=== PATIENT | female | born 1955 | race Caucasian/White ===

== ENCOUNTER 2017-12-02 21:38 | Emergency (ER) | payer MEDICARE ==
[2017-12-02 22:11] VITALS: RESP 18; TEMP 98.3
[2017-12-02 22:46] LABS: BASO # 0.01 K/mm3 (0.0-2.0); BASO % 0.1 % (0.0-3.0); EOS # 0.2 (0.0-0.7); EOS % 2.1 % (1.5-5.0); GRAN # 4.27 (1.4-6.5); GRAN % 55.4 % (50.0-68.0); HEMOGLOBIN 12.4 g/dL (12.0-16.0); LYMPH # 2.6 (1.2-3.4); LYMPH % 33.4 % (22.0-35.0); MEAN CELL VOLUME 82.5 fl (80.0-105.0); MEAN CORPUSCULAR HEMOGLOBIN 26.2 pg (25.0-35.0); MEAN CORPUSCULAR HGB CONC 31.7 g/dl (31.0-37.0); MEAN PLATELET VOLUME 13.5 fl (7.0-11.0); MONO # 0.7 (0.1-0.6); RBC 4.74 10^6/uL (3.5-6.1); RED CELL DISTRIBUTION WIDTH 15.5 % (11.5-14.5); WHITE BLOOD COUNT 7.7 10^3/ul (4.5-11.0)
[2017-12-02 22:54] LABS: ALB/GLOB RATIO 1.3 (1.1-1.8); ALBUMIN 4.3 g/dL (3.0-4.8); ALT/SGPT 45 U/L (7-56); AST/SGOT 44 U/L (14-36); BLOOD UREA NITROGEN 10 mg/dL (7-21); CALCIUM 9.9 mg/dL (8.4-10.5); GFR AFRICAN-AMERICAN > 60; GFR NON-AFRICAN AMERICAN > 60
[2017-12-02 22:56] LABS: INR 2.17 (0.93-1.08); PROTHROMBIN TIME 25.1 SECONDS (9.4-12.5)
--- NOTE | 2017-12-02 23:01 | ED PDOC ---
Arrival/HPI - General Chief Complaint: Trauma Time Seen by Provider: 12/02/17 22:00 Historian: Patient - History of Present Illness Narrative History of Present Illness (Text): 12/02/17 22:20 Kerrie Franco is a 62 year old female, whose past medical history includes atrial fibrillation, who presents to the emergency department complaining of dizziness. Patient states she felt increasingly dizzy while walking at home today and fell to the floor. Patient does not recall the incident and is unsure if she hit her head. Patient also reports right shoulder pain. Patient reports she regularly takes Coumadin. Patient denies any fever, chills, chest pain, shortness of breath, abdominal pain, nausea, vomiting, back pain, neck pain, dizziness, or any other complaints. Symptom Onset: Gradual Symptom Course: Unchanged Activities at Onset: Light Context: Home Past Medical History - Provider Review Nursing Documentation Reviewed: Yes - Cardiac Hx Atrial Fibrillation: Yes - Psychiatric Hx Substance Use: No Family/Social History - Physician Review Nursing Documentation Reviewed: Yes Family/Social History: Unknown Family HX Smoking Status: Current Some Days Smoker Hx Alcohol Use: No Hx Substance Use: No Allergies/Home Meds Allergies/Adverse Reactions: Allergies Penicillins Adverse Reaction (Verified 12/02/17 22:13) RASH Review of Systems - Physician Review All systems were reviewed & negative as marked: Yes - Review of Systems Constitutional: Normal. absent: Fevers Eyes: Normal ENT: Normal Respiratory: Normal. absent: SOB, Cough Cardiovascular: Other (+near-syncope). absent: Chest Pain Gastrointestinal: Normal. absent: Abdominal Pain, Diarrhea, Nausea, Vomiting Genitourinary Female: Normal. absent: Dysuria, Frequency, Hematuria, Urine Output Changes Musculoskeletal: Arthralgias (+right shoulder pain) Skin: Normal. absent: Rash Neurological: Dizziness. absent: Headache Endocrine: Normal Hemo/Lymphatic: Normal Psychiatric: Normal Physical Exam Vital Signs Reviewed: Yes Vital Signs Temp Pulse Resp BP Pulse Ox 12/03/17 00:47 59 L 18 120/59 L 95 12/02/17 21:55 98.3 F 77 18 158/90 H 99 Temperature: Afebrile Blood Pressure: Normal Pulse: Regular Respiratory Rate: Normal Appearance: Positive for: Well-Appearing, Non-Toxic, Comfortable Pain Distress: None Mental Status: Positive for: Alert and Oriented X 3 - Systems Exam Head: Present: Atraumatic, Normocephalic Pupils: Present: PERRL Extroacular Muscles: Present: EOMI Conjunctiva: Present: Normal Mouth: Present: Moist Mucous Membranes Neck: Present: Normal Range of Motion Respiratory/Chest: Present: Clear to Auscultation, Good Air Exchange. No: Respiratory Distress, Accessory Muscle Use Cardiovascular: Present: Regular Rate and Rhythm, Normal S1, S2. No: Murmurs Abdomen: Present: Normal Bowel Sounds. No: Tenderness, Distention, Peritoneal Signs Back: Present: Normal Inspection Upper Extremity: Present: Normal Inspection. No: Cyanosis, Edema Lower Extremity: Present: Normal Inspection. No: Edema Neurological: Present: GCS=15, CN II-XII Intact, Speech Normal Skin: Present: Warm, Dry, Normal Color. No: Rashes Psychiatric: Present: Alert, Oriented x 3, Normal Insight, Normal Concentration Medical Decision Making ED Course and Treatment: 12/02/17 22:20 Impression: 62 year old female presents s/p fall with right shoulder pain and dizziness. Plan: -- CT Head w/o contrast -- EKG -- CXR -- Labs, troponin -- Urinalysis -- Reassess and disposition Prior Visits: Notes and results from previous visits were reviewed. Progress Notes: Reviewed EKG, NSR at [address]-segment elevations or depressions, no T-wave inversions, normal intervals. 12/03/17 00:01 CT Head shows: Brain: Prominence of the sulci and ventricular system consistent with atrophy. Hypodensity in white matter consistent with chronic small vessel disease bilateral basal ganglia calcification. Ventricles: No hydrocephalus. Bones/joints: Unremarkable. No acute fracture. Soft tissues: Unremarkable. Sinuses: Mucosal thickening in left sphenoid sinus. Mastoid air cells: Unremarkable as visualized. No mastoid effusion. IMPRESSION: No acute intracranial abnormality. - Lab Interpretations Lab Results: 12/02/17 22:40 12/02/17 22:40 Lab Results 12/02/17 22:40: Sodium 144, Potassium 3.9, Chloride 105, Carbon Dioxide 28, Anion Gap 15, BUN 10, Creatinine 0.6 L, Est GFR ( Amer) > 60, Est GFR ( Non-Af Amer) > 60, Random Glucose 99, Calcium 9.9, Total Bilirubin 1.5 H, AST 44 H, ALT 45, Alkaline Phosphatase 88, Troponin I < 0.01, Total Protein 7.6, Albumin 4.3, Globulin 3.3, Albumin/Globulin Ratio 1.3 12/02/17 22:40: PT 25.1 H, INR 2.17 H 12/02/17 22:40: WBC 7.7 D, RBC 4.74, Hgb 12.4, Hct 39.1, MCV 82.5, MCH 26.2, MCHC 31.7, RDW 15.5 H, Plt Count 159, MPV 13.5 H, Gran % 55.4, Lymph % (Auto) 33.4, [place] % (Auto) 9.0 H, Eos % (Auto) 2.1, Baso % (Auto) 0.1, Gran # 4.27, Lymph # (Auto) 2.6, [place] # (Auto) 0.7 H, Eos # (Auto) 0.2, Baso # (Auto) 0.01 I have reviewed the lab results: Yes - RAD Interpretation Radiology Orders: 12/02/17 22:20 HEAD W/O CONTRAST [CT] Stat 12/02/17 22:21 CHEST ONE VIEW [RAD] Stat 12/02/17 23:18 CERVICAL SPINE >18YR W/OBLIQUE [RAD] Stat 12/02/17 23:19 SHOULDER RIGHT [RAD] Stat Housekeeping/Laundry: Radiologist - EKG Interpretation Interpreted by ED Physician: Yes Type: 12 lead EKG - Medication Orders Current Medication Orders: Discontinued Medications Acetaminophen (Tylenol 325mg Tab) 650 mg PO STAT STA Stop: 12/02/17 23:42 Last Admin: 12/02/17 23:45 Dose: 650 mg MAR Pain/Vitals Document 12/02/17 23:45 AD (Rec: 12/03/17 00:23 AD [id number]) Pain Reassessment Is This A Pain ReAssessment? No Presence of Pain Presence of Pain Yes Pain Scale Used Pain Scale Used Numeric Location Left, Right or Bilateral Right Pain Location Body Site Shoulder Intensity 5 Scale Used Numeric Pain Behavior Facial Grimacing - Scribe Statement The provider has reviewed the documentation as recorded by the Cristine Reece Provider Scribe Attestation: All medical record entries made by the Scribe were at my direction and personally dictated by me. I have reviewed the chart and agree that the record accurately reflects my personal performance of the history, physical exam, medical decision making, and the department course for this patient. I have also personally directed, reviewed, and agree with the discharge instructions and disposition. Disposition/Present on Arrival - Present on Arrival Any Indicators Present on Arrival: No History of DVT/PE: No History of Uncontrolled Diabetes: No Urinary Catheter: No History of Decub. Ulcer: No History Surgical Site Infection Following: None - Disposition Have Diagnosis and Disposition been Completed?: Yes Diagnosis: Head injury, Shoulder contusion Disposition: HOME/ ROUTINE Disposition Time: 02:00 Condition: GOOD Discharge Instructions (ExitCare): Concussion in Adults, Head Injury Observation (DC), Shoulder Pain (DC) Referrals: Bassem Ferrera MD [Primary Care Provider] - Follow up with primary Forms: [employer] (Polish)
[2017-12-02 23:05] LABS: TROPONIN I < 0.01 ng/mL
[2017-12-02] MEDS ORDERED: Oxycodone/Acetaminophen 5/325 mg Tab PO STA (23:20)
--- NOTE | 2017-12-02 23:34 | CT ---
EXAM: CT Head Without Intravenous Contrast CLINICAL HISTORY: 62 years old, female; Injury or trauma; Fall; Initial encounter; Blunt trauma (contusions or hematomas); Consciousness not specified; Injury date: 12-02-17; Injury details: Hit back of head; Additional info: Dizzness TECHNIQUE: Axial computed tomography images of the head/brain without intravenous contrast. All CT scans at this facility use one or more dose reduction techniques, viz.: automated exposure control; ma/kV adjustment per patient size (including targeted exams where dose is matched to indication; i.e. head); or iterative reconstruction technique. Coronal and sagittal reformatted images were created and reviewed. COMPARISON: No relevant prior studies available. FINDINGS: Brain: Prominence of the sulci and ventricular system consistent with atrophy. Hypodensity in white matter consistent with chronic small vessel disease bilateral basal ganglia calcification. Ventricles: No hydrocephalus. Bones/joints: Unremarkable. No acute fracture. Soft tissues: Unremarkable. Sinuses: Mucosal thickening in left sphenoid sinus. Mastoid air cells: Unremarkable as visualized. No mastoid effusion. IMPRESSION: No acute intracranial abnormality.
[2017-12-03 00:48] VITALS: BP 120/59; PULSE 59; O2SAT 95
--- NOTE | 2017-12-03 09:27 | RAD ---
PROCEDURE: CHEST RADIOGRAPH, 1 VIEW HISTORY: pain COMPARISON: None available. FINDINGS: LUNGS: Clear. PLEURA: No pneumothorax or pleural fluid seen. CARDIOVASCULAR: Normal. OSSEOUS STRUCTURES: Sternal wires VISUALIZED UPPER ABDOMEN: Normal. OTHER FINDINGS: None. IMPRESSION: No active disease.
--- NOTE | 2017-12-03 09:29 | RAD ---
PROCEDURE: Cervical Spine Radiographs. HISTORY: Pain. COMPARISON: None. FINDINGS: BONES: Alignment maintained. No fracture. Dens Intact. DISC SPACES: There is disc degeneration at C5-6 and C6-7 SOFT TISSUES: Normal. No prevertebral soft tissue swelling. OTHER FINDINGS: None. IMPRESSION: There is disc degeneration at C5-6 and C6-7
--- NOTE | 2017-12-03 09:29 | RAD ---
PROCEDURE: Radiographs of the Right Shoulder HISTORY: fall COMPARISON: No prior. FINDINGS: BONES: Normal. No fracture. JOINTS: Normal. Glenohumeral and acromioclavicular joints preserved. No osteoarthritis. SOFT TISSUES: Normal. OTHER FINDINGS: None. IMPRESSION: Normal radiographs of the right shoulder.
--- NOTE | 2017-12-03 19:35 | CARD ---
APPROVED REPORT EKG Measurement Heart [id number] <Conclusion> Normal sinus rhythm Normal ECG
== END 2017-12-03 01:45 | disposition home or self-care (01) ==
LOC: ED 21:38
DX: S09.90XA Unspecified injury of head, initial encounter (principal); S40.011A Contusion of right shoulder, initial encounter; W01.0XXA Fall on same level from slipping, tripping and stumbling without subsequent striking against object, initial encounter; Y92.89 Other specified places as the place of occurrence of the external cause; I48.91 Unspecified atrial fibrillation; Z79.01 Long term (current) use of anticoagulants

== ENCOUNTER 2018-10-10 10:03 | Outpatient (CLI) | payer MEDICARE | END 2018-10-10 10:04 | disposition home or self-care (01) | LOC: RAD 10:03 ==